=== PATIENT | male | born 1965 | race Caucasian/White ===

== ENCOUNTER → 2016-08-20 | Outpatient (CLI) | payer BC ==
[~2016-08-20] MED LIST: DEPAKOTE ER 50500 MG PO; LATUDA80 MG PO; NO HOME MEDICATIONS; RISPERDAL 0.5M0.5 MG PO; RISPERDAL 1M1 MG/TAB PO; WELLBUTRIN 100100 MG PO; WELLBUTRIN XL300 M1 PO
== END ==
LOC: BHSO 15:01
DX: F31.74 Bipolar disorder, in full remission, most recent episode manic (principal)

== ENCOUNTER → 2017-05-02 | Outpatient (CLI) | payer BC | LOC: BHSO 13:51 | DX: F41.1 Generalized anxiety disorder (principal) ==

== ENCOUNTER → 2017-12-16 | Outpatient (CLI) | payer BC | LOC: BHSO 15:10 | DX: F31.73 Bipolar disorder, in partial remission, most recent episode manic (principal) | CPT/HCPCS: G0463 ==

== ENCOUNTER → 2018-03-20 | Outpatient (CLI) | payer BC | LOC: BHSO 13:57 | DX: F31.76 Bipolar disorder, in full remission, most recent episode depressed (principal) | CPT/HCPCS: G0463 ==

== ENCOUNTER → 2018-09-18 | Outpatient (CLI) | payer BC | LOC: BHSO 13:12 | DX: F31.78 Bipolar disorder, in full remission, most recent episode mixed (principal) | CPT/HCPCS: G0463 ==

== ENCOUNTER → 2018-11-03 | Outpatient (CLI) | payer BC | LOC: BHSO 10:29 | DX: F31.76 Bipolar disorder, in full remission, most recent episode depressed (principal) | CPT/HCPCS: G0463 ==

== ENCOUNTER → 2018-12-30 | Outpatient (CLI) | payer BC | LOC: BHSO 10:12 | DX: F31.74 Bipolar disorder, in full remission, most recent episode manic (principal) | CPT/HCPCS: G0463 ==

== ENCOUNTER → 2019-07-02 | Outpatient (CLI) | payer BC | LOC: BHSO 12:59 | DX: F41.1 Generalized anxiety disorder (principal) | CPT/HCPCS: G0463 ==

== ENCOUNTER → 2019-11-02 | Outpatient (CLI) | payer BC | LOC: BHSO 09:45 | DX: F31.81 Bipolar II disorder (principal) | CPT/HCPCS: G0463 ==